=== PATIENT | male | born 1985 | race Caucasian/White ===

== ENCOUNTER 2021-02-17 10:26 | Emergency (ER) | payer OTHER ==
[~2021-02-17] VITALS: Ht 185.4 cm; Wt 158.8 kg
[2021-02-17] MEDS ORDERED: FLEXERIL PO (11:26)
[2021-02-17 11:35] VITALS: BP 159/104
== END 2021-02-17 11:35 | disposition home or self-care (01) ==
LOC: M.ERS 10:26
DX: U07.1 COVID-19 (principal); R50.9 Fever, unspecified; M79.10 Myalgia, unspecified site